=== PATIENT | female | born 1950 | race Caucasian/White ===

== ENCOUNTER 2024-07-27 19:10 | Emergency (ER) | payer MEDICARE, OTHER, SELFPAY ==
[2024-07-27 19:19] VITALS: BP 149/76
--- NOTE | 2024-07-27 21:34 | ED.GENMED ---
History of Present Illness
General
Chief Complaint: Fall
Source: patient, spouse and family
Exam Limitations: none
Time Seen by Provider: 07/27/24 19:56
Nursing documentation reviewed up to this point in time: agreed with
History of Present Illness
History of Present Illness:
74-year-old female past medical history of hypertension hyperlipidemia, GERD presenting to the emergency department today with concerns of a fall after walking the dog following the right wrist right forehead and right rib cage no loss of
consciousness but does have significant discomfort to the right wrist and right forehead. Mild pain to the right ribs. Able to ambulate at the scene denies numbness weakness neck pain nausea vomiting.
Review of Systems
Review of Systems
Allergies reviewed?: Yes
All Other Systems: ROS reviewed and negative except as documented in HPI and ROS
Phy Exam
Physical Exam
Physical Exam:
GENERAL: Alert , in no apparent distress
EYE: pupils equal and reactive normal extraocular movements
NECK: Supple, no significant adenopathy.
ENT: Slight bruising to the right upper orbital rim face superficial abrasion to the lateral aspect of the right eyebrow. o/p clr, mmm.
CARDIAC: Regular rate and rhythm .
LUNGS: Clear breath sounds bilaterally, no acute respiratory distress, no wheezes/rales/rhonchi
ABDOMEN: Soft, without focal tenderness, no r/g, no cvat
NEUROLOGICAL: Alert and oriented, no focal neuro deficits
SKIN: Warm and dry, skin intact.
MUSCULOSKELETAL: Deformity and discomfort to the right wrist no tenderness throughout the hand or remainder of the forearm.well perfused.
PSYCH: Normal and appropriate interaction.
Course
Orders/Labs/Results
Orders:
Orders
07/27/24 20:45
CT Head W/o Iv Contrast Urgent
Comment:
Reason For Exam: fall head trauam right forehead
CR Ribs-right 3 Vw W/pa Chest* Urgent
Comment:
Reason For Exam: rib chhaya bafte rfall anteior lower ribs
CR Wrist - Right Min 3 Views Urgent
Comment:
Reason For Exam: wrist poain deformity
Vital Signs
Initial and Last Documented VS:
Initial Vital Signs
Temp Pulse BP Pulse Ox
98.6 F 91 149/76 97
07/27/24 19:19 07/27/24 19:19 07/27/24 19:19 07/27/24 19:19
Last Documented Vital Signs
Temp Pulse Resp BP Pulse Ox
98.6 F 88 16 133/72 97
07/27/24 19:19 07/27/24 21:42 07/27/24 22:00 07/27/24 21:42 07/27/24 21:42
Procedures
Splinting/Sling Placement
Right Wrist:
Procedure completed by: Myself
Pre-splint extermity exam: neurovascular intact
Type of splint: sugar-tong
Splint material: fiberglass
Splint checked by provider?: Yes
Type of sling: sling fitted
Normal distal neurovascular exam?: Yes
MDM/Problems Addressed
MDM/Problems Addressed:
74-year-old female presenting to the emergency department after falling hitting her right forehead right wrist also having some mild pain to the right lateral ribs. No loss of consciousness no neck pain not on blood thinners. Deformity to the
right wrist. Due to her advanced age plan for CT scan to ensure no emergent injury from the head trauma. Normal extraocular movements and normal eye examination. Very minimal discomfort to the right ribs very unlikely to be fracture clear lungs
normal heart sounds no belly pain. X-ray showing fracture to the right distal radius. Patient was splinted and otherwise will follow-up with orthopedics. Head CT without emergent findings rib series without rib fracture or lung pathology. Return
precautions given.
*Critical Care Note
Total Time (30-74mins, 75-104mins- exclusive of procedures): Not Applicable
ED Attending Note
-
Portions of this chart may have been created with voice recognition software.� Occasional wrong word or��sound alike� substitutions may have occurred due to the inherent limitations of voice recognition software.
Discharge Plan
Departure
Patient Disposition: Home (Routine Discharge)
Date of Disposition: 07/27/24
Time of Disposition: 23:28
Patient with high blood pressure during this ER visit?: No
Condition: Good
Covid-19: Not Applicable
Discharge Problem:
Fracture of wrist, Contusion of face
Instructions: Preventing falls in adults, Wrist fracture
Referrals:
Loren Navas MD [Family Provider] -
Valeriano Tabor MD [Active] - Follow up in 5-7 days
Ollie Calix MD [Active] - Follow up in 5-7 days
Activity Restrictions/Additional Instructions:
You came to the emergency department today with concerns of a fall. You are found to have a right-sided wrist fracture. You were splinted and will need to follow-up closely with orthopedics. Return to the emergency department for any worsening,
new or concerning symptoms.
Interventions
Interventions:
*Risk Screen - Suicide Last Done: 07/27/24 20:02
*General Assessment Last Done: 07/27/24 20:02
*Neglect/Abuse Screening Last Done: 07/27/24 20:02
*ED COVID-19 Vaccine History Last Done: 07/27/24 20:02
ED-Musculoskeletal Assessment Last Done: 07/27/24 20:03
ED- Neurological Assessment Last Done: 07/27/24 20:03
ED-Skin Assessment Last Done: 07/27/24 20:03
Discharge Date and Time
Print Language: THAI
[2024-07-27 21:42] VITALS: BP 133/72
== END 2024-07-27 23:40 | disposition home or self-care (01) ==
LOC: EMR 19:10
PROVIDERS: EMERGENCY PHYSICIAN Emergency Medicine; FAMILY PHYSICIAN Internal Medicine
DX: S52.501A Unspecified fracture of the lower end of right radius, initial encounter for closed fracture (principal); S00.83XA Contusion of other part of head, initial encounter; W19.XXXA Unspecified fall, initial encounter; I10 Essential (primary) hypertension; K21.9 Gastro-esophageal reflux disease without esophagitis; E78.5 Hyperlipidemia, unspecified
CPT/HCPCS: 99285; 29125; 70450; 71101; 73110

== ENCOUNTER 2024-07-30 06:27 | Day surgery (SDC) | payer MEDICARE, OTHER, SELFPAY ==
[2024-07-30] VITALS (7 sets, daily range): BP systolic 95–156; BP diastolic 57–83; BMI 25.9
[2024-07-30 13:56] LABS: Hematocrit 37.2 % (37.0-47.0); Hemoglobin 12.9 g/dL (12.0-16.0); Mean Corp Hgb Conc. 34.7 g/dL (33.0-37.0); Mean Corpuscular Hgb 29.9 pg (27.0-31.0); Mean Corpuscular Volume 86.3 fL (81.0-99.0); Mean Platelet Volume 9.9 fL (7.4-10.4); Platelet Count 176 10^3/uL (130-400); Red Blood Cell Count 4.31 10^6/uL (4.20-5.40); Red Cell Dist. Width 12.5 % (11.5-14.5); White Blood Cell Count 7.1 10^3/uL (4.8-10.8)
--- NOTE | 2024-07-30 15:17 | PTCARENOTE ---
Pt is tearful, stressed about the wait. Dr. Calix in to see pt. offered assistance to pt. Deep breathing, and distraction offered to pt.
[2024-07-30] MEDS: CELEBREX 200 MG PO (15:51)
[2024-07-30] MEDS: TYLENOL 1000 MG PO (15:51)
[2024-07-30] MEDS: NORMOSOL-R/PLASMALYTE-A 1000 IV (15:52)
== END 2024-07-30 19:50 | disposition home or self-care (01) ==
LOC: SDS 06:27
PROVIDERS: ATTENDING PHYSICIAN Orthopaedic Surgery
DX: S52.501A Unspecified fracture of the lower end of right radius, initial encounter for closed fracture (principal); X58.XXXA Exposure to other specified factors, initial encounter
CPT/HCPCS: 25607; 73110; 76000; 85027; 93005; C1713

== ENCOUNTER → 2025-02-11 10:20 | Outpatient (REF) | payer MEDICARE, OTHER, SELFPAY | LOC: PAVMRI 10:20 | PROVIDERS: ATTENDING PHYSICIAN Pain Medicine Interventional Pain Medicine; FAMILY PHYSICIAN Internal Medicine | DX: M54.16 Radiculopathy, lumbar region (principal) | CPT/HCPCS: 72148 ==

== ENCOUNTER → 2025-02-26 10:26 | Outpatient (REF) | payer MEDICARE, OTHER, SELFPAY | LOC: HWCARD 10:26 | PROVIDERS: ATTENDING PHYSICIAN Pain Medicine Interventional Pain Medicine; FAMILY PHYSICIAN Internal Medicine | DX: Z01.818 Encounter for other preprocedural examination (principal) | CPT/HCPCS: 93005 ==

== ENCOUNTER → 2025-09-12 15:02 | Outpatient (REF) | payer MEDICARE, OTHER, SELFPAY | LOC: HWRAD 15:02 | PROVIDERS: ATTENDING PHYSICIAN Internal Medicine | DX: N28.1 Cyst of kidney, acquired (principal) | CPT/HCPCS: 76775 ==